=== PATIENT | male | born 1990 | race Caucasian/White ===

== ENCOUNTER 2016-09-05 21:01 | Emergency (ER) | payer SELFPAY ==
[2016-09-05 21:03] VITALS: BMI 25.0
[2016-09-05 21:09] VITALS: RESP 16; TEMP 97.9
--- NOTE | 2016-09-05 21:19 | ED PDOC ---
Arrival/HPI - General Chief Complaint: Palpitations Time Seen by Provider: 09/05/16 21:13 Historian: Patient - History of Present Illness Narrative History of Present Illness (Text): 09/05/16 21:08 Isauro Bruce is a 26 year old male who presents to the emergency department complaining of shortness of breath and dizziness for about 1/2 an hour. Patient states that he has been experiencing intermittent hives for 2-3 days. This afternoon the hives came back, Patient bought Benedryl and began to experience shortness of breath and dizziness with associated palpitations and generalized weakness prompting him to come to emergency department. Patient denies any fever , chills, chest pain, nausea, vomiting, diarrhea, urinary symptoms, back pain, neck pain, headache,or any other complaints. PMD:None Time/Duration: 1/2 hour, < week Symptom Onset: Gradual Symptom Course: Unchanged Severity Level: Mild Activities at Onset: Rest Modifying Factors (Text): none Context: Home Past Medical History - Provider Review Nursing Documentation Reviewed: Yes - Past History Past History: No Previous - Tetanus Immunization Tetanus Immunization: Unknown - Musculoskeletal/Rheumatological Hx Falls: No - Psychiatric Hx Depression: No Hx Emotional Abuse: No Hx Physical Abuse: No Hx Substance Use: No - Past Surgical History Past Surgical History: No Previous - Suicidal Assessment Feels Threatened In Home Enviroment: No Family/Social History - Physician Review Nursing Documentation Reviewed: Yes Family/Social History: No Known Family HX Smoking Status: Unknown If Ever Smoked Hx Alcohol Use: No Hx Substance Use: No Hx Substance Use Treatment: No Allergies/Home Meds Allergies/Adverse Reactions: Allergies No Known Allergies Allergy (Verified 09/05/16 21:03) Home Medications: Home Meds Medication Instructions Recorded Confirmed DiphenhydrAMINE [Benadryl] 25 mg PO PRN PRN 09/05/16 09/05/16 Review of Systems - Review of Systems Constitutional: absent: Fevers, Night Sweats Eyes: absent: Vision Changes ENT: absent: Hearing Changes Respiratory: SOB Cardiovascular: Palpitations. absent: Chest Pain Gastrointestinal: absent: Abdominal Pain Genitourinary Male: absent: Urinary Output Changes Musculoskeletal: absent: Back Pain, Neck Pain Skin: absent: Rash Neurological: Dizziness Endocrine: absent: Diaphoresis Hemo/Lymphatic: absent: Adenopathy Psychiatric: absent: Depression Physical Exam Vital Signs Reviewed: Yes Vital Signs Temp Pulse Resp BP Pulse Ox 09/05/16 21:59 77 16 111/50 L 98 09/05/16 21:08 97.9 F 80 16 125/63 99 Temperature: Afebrile Blood Pressure: Normal Pulse: Regular Respiratory Rate: Normal Appearance: Positive for: Well-Appearing, Non-Toxic, Comfortable Pain Distress: None Mental Status: Positive for: Alert and Oriented X 3 - Systems Exam Head: Present: Atraumatic, Normocephalic Pupils: Present: PERRL Extroacular Muscles: Present: EOMI Conjunctiva: Present: Normal Mouth: Present: Moist Mucous Membranes Neck: Present: Normal Range of Motion Respiratory/Chest: Present: Clear to Auscultation, Good Air Exchange. No: Respiratory Distress, Accessory Muscle Use Cardiovascular: Present: Regular Rate and Rhythm, Normal S1, S2. No: Murmurs Abdomen: Present: Normal Bowel Sounds. No: Tenderness, Distention, Peritoneal Signs Back: Present: Normal Inspection Upper Extremity: Present: Normal Inspection. No: Cyanosis, Edema Lower Extremity: Present: Normal Inspection. No: Edema Neurological: Present: GCS=15, CN II-XII Intact, Speech Normal Skin: Present: Warm, Dry, Normal Color. No: Rashes Psychiatric: Present: Alert, Oriented x 3, Normal Insight, Normal Concentration Medical Decision Making ED Course and Treatment: 09/05/16 21:45 the pt refused chest xray citing insurance reasons. disc reasons for exam, risks of refusing, pt wishes to sign ama. - Medication Orders Current Medication Orders: Discontinued Medications Prednisone (Prednisone Tab) 20 mg PO STAT STA Stop: 09/05/16 21:15 Last Admin: 09/05/16 21:22 Dose: 20 MG - Scribe Statement The provider has reviewed the documentation as recorded by the Tomas Mao Provider Scribe Attestation: All medical record entries made by the Tomas were at my direction and personally dictated by me. I have reviewed the chart and agree that the record accurately reflects my personal performance of the history, physical exam, medical decision making, and the department course for this patient. I have also personally directed, reviewed, and agree with the discharge instructions and disposition. Disposition/Present on Arrival - Present on Arrival Any Indicators Present on Arrival: No History of DVT/PE: No History of Uncontrolled Diabetes: No Urinary Catheter: No History of Decub. Ulcer: No History Surgical Site Infection Following: None - Disposition Have Diagnosis and Disposition been Completed?: Yes Diagnosis: Shortness of breath Disposition: AGAINST MEDICAL ADVICE Disposition Time: 21:48 Condition: STABLE Discharge Instructions (ExitCare): Anaphylaxis (ED) Print Language: CHINESE Additional Instructions: Please follow up with a primary doctor. Return to the ER for any worsening symptoms or for any other concerns. Referrals: [facility] at [facility] [place] [Outside] - Follow up with primary
[2016-09-05 21:59] VITALS: BP 111/50; PULSE 77; O2SAT 98
--- NOTE | 2016-09-06 09:56 | CARD ---
APPROVED REPORT EKG Measurement Heart [id number] <Conclusion> Normal sinus rhythm Incomplete right bundle branch block LVH by voltage, could be normal variant Small q waves 2,3,f, V 4 - 6
== END 2016-09-05 22:10 | disposition left against medical advice (07) ==
LOC: ED 21:01
DX: R06.02 Shortness of breath (principal)